=== PATIENT | female | born 1950 | race Two or more races ===

== ENCOUNTER 2020-07-21 19:32 | Emergency (ER) | payer OTHER ==
[2020-07-21 19:43] VITALS: BP 174/62; PULSE 72; TEMP 98.6; BMI 22.2
[2020-07-21] MEDS ORDERED: ACETAMINOPHEN 500 MG TABLET (FP) PO ONE (20:02)
[2020-07-21] MEDS ORDERED: RABIES IMMUNE GLOBULIN 300 UNITS/1 ML VIAL IM ONE (20:07)
[2020-07-21] MEDS ORDERED: RABIES VACCINE (PCEC)/PF 2.5 UNIT/VIAL IM ONE ×2 (20:07→20:26)
[2020-07-21] MEDS ORDERED: ONDANSETRON *ODT* 4 MG TABLET SL ONE (20:13)
[2020-07-21] MEDS ORDERED: ACETAMINOPHEN 500 MG TABLET (FP) ONE (20:25)
[2020-07-21] MEDS ORDERED: RABIES IMMUNE GLOBULIN 300 UNITS/1 ML VIAL ONE (20:26)
== END 2020-07-21 21:07 | disposition home or self-care (01) ==
LOC: JERFT 19:32
PROC: 3E0234Z Introduction of Serum, Toxoid and Vaccine into Muscle, Percutaneous Approach (ICD-10-PCS; principal; 2020-07-21)
DX: S81.851A Open bite, right lower leg, initial encounter (principal); W54.0XXA Bitten by dog, initial encounter
CPT/HCPCS: 90375; 90675; 99284-25

== ENCOUNTER 2020-07-24 14:30 | Emergency (ER) | payer OTHER ==
[2020-07-24 14:44] VITALS: BP 134/66; PULSE 70; BMI 22.2
[2020-07-24] MEDS ORDERED: RABIES VACCINE (PCEC)/PF 2.5 UNIT/VIAL IM ONE ×2 (15:14→15:22)
== END 2020-07-24 15:30 | disposition home or self-care (01) ==
LOC: JERFT 14:30
PROC: 3E0234Z Introduction of Serum, Toxoid and Vaccine into Muscle, Percutaneous Approach (ICD-10-PCS; principal; 2020-07-24)
DX: Z29.14 Encounter for prophylactic rabies immune globulin (principal)
CPT/HCPCS: 90471; 90675; 99284-25

== ENCOUNTER 2020-07-28 13:16 | Emergency (ER) | payer OTHER ==
[2020-07-28] MEDS ORDERED: RABIES VACCINE (PCEC)/PF 2.5 UNIT/VIAL IM ONE ×2 (13:19→13:30)
[2020-07-28 13:25] VITALS: BP 165/82; PULSE 68; TEMP 98.1; BMI 22.2
== END 2020-07-28 13:40 | disposition home or self-care (01) ==
LOC: JER 13:16
PROC: 3E0234Z Introduction of Serum, Toxoid and Vaccine into Muscle, Percutaneous Approach (ICD-10-PCS; principal; 2020-07-28)
DX: Z29.14 Encounter for prophylactic rabies immune globulin (principal)
CPT/HCPCS: 90675; 99284-25

== ENCOUNTER 2020-08-04 14:36 | Emergency (ER) | payer OTHER ==
[2020-08-04 14:55] VITALS: BP 132/74; PULSE 68; TEMP 98.1; BMI 22.2
[2020-08-04] MEDS ORDERED: RABIES VACCINE (PCEC)/PF 2.5 UNIT/VIAL IM ONE ×2 (15:20→15:43)
== END 2020-08-04 16:06 | disposition home or self-care (01) ==
LOC: JERFT 14:36
PROC: 3E0234Z Introduction of Serum, Toxoid and Vaccine into Muscle, Percutaneous Approach (ICD-10-PCS; principal; 2020-08-04)
DX: Z20.3 Contact with and (suspected) exposure to rabies (principal)
CPT/HCPCS: 90675; 99284-25

== ENCOUNTER 2021-07-11 13:29 | Inpatient (IN) | payer OTHER ==
[2021-07-11 14:26] VITALS: BMI 22.2
[2021-07-11] MEDS ORDERED: ASPIRIN 81 MG CHEWABLE TABLETS PO ONE (14:50)
[2021-07-11] MEDS ORDERED: NITROGLYCERIN SUBLINGUAL 1/200 0.3 MG BTL SL ONE (14:50)
[2021-07-11] MEDS ORDERED: ASPIRIN 81 MG CHEWABLE TABLETS ONE (15:04)
[2021-07-11] MEDS ORDERED: NITROGLYCERIN SUBLINGUAL 1/150 0.4 MG TAB ONE (15:05)
[2021-07-11] MEDS ORDERED: ACETAMINOPHEN 1000 MG/100 ML BAG IVPB ONE (15:16)
[2021-07-11 15:20] LABS: BASO % 0.4 % (0-2.0); EOS % 0.2 % (0-4.5); HEMATOCRIT 41.9 % (32.4-45.2); HEMOGLOBIN 13.6 GM/dL (10.7-15.3); LYMPH % 27.3 % (8-40); MCH 26.1 pg (25.7-33.7); MCHC 32.4 g/dl (32.0-36.0); MEAN CELL VOLUME 80.5 fl (80-96); MEAN PLT VOLUME 7.2 fl (7.5-11.1); MONO % 4.8 % (3.8-10.2); NEUT % 67.3 % (42.8-82.8); PLATELET COUNT 328 10^3/uL (134-434); RDW 13.6 % (11.6-15.6); WHITE BLOOD COUNT 6.9 K/mm3 (4.0-10.0)
[2021-07-11] MEDS ORDERED: ACETAMINOPHEN INJECTION 100 ML IVPB ONE (15:20)
[2021-07-11 15:23] LABS: PH,URINE 7.5 (5.0-8.0); URINE APPEARANCE CLEAR; URINE BILIRUBIN NEGATIVE (NEGATIVE); URINE COLOR YELLOW; URINE GLUCOSE (UA) NEGATIVE (NEGATIVE); URINE KETONE NEGATIVE (NEGATIVE); URINE LEUK ESTERASE NEGATIVE (NEGATIVE); URINE NITRITE NEGATIVE (NEGATIVE); URINE PROTEIN NEGATIVE (NEGATIVE); URINE UROBILINOGEN 0.2 mg/dL (0.2-1.0)
[2021-07-11 15:28] LABS: INR 1.03 (0.83-1.09); PROTHROMBIN TIME (PATIENT) 11.9 SEC (9.7-13.0)
[2021-07-11 15:30] LABS: ACTIVATED PTT 32.3 SECONDS (25.2-36.5)
[2021-07-11 15:39] LABS: CHLORIDE 106 mmol/L (98-107); SODIUM 142 mmol/L (136-145)
[2021-07-11 15:41] LABS: ALBUMIN 4.6 g/dl (3.4-5.0); CALCIUM 9.7 mg/dL (8.5-10.1)
[2021-07-11 15:42] LABS: ANION GAP 8 MMOL/L (8-16); BLOOD UREA NITROGEN 13.7 mg/dL (7-18); CO2 27 mmol/L (21-32); GLUCOSE,RANDOM 109 mg/dL (74-106)
[2021-07-11 15:44] LABS: CREATININE 0.6 mg/dL (0.55-1.3)
[2021-07-11 15:45] LABS: SGOT/AST 24 U/L (15-37); SGPT/ALT 29 U/L (13-61)
[2021-07-11 15:46] LABS: BILIRUBIN,TOTAL 0.3 mg/dL (0.2-1); TOT PROT 8.9 g/dl (6.4-8.2)
[2021-07-11 15:47] LABS: ALK PHOS 123 U/L (45-117)
[2021-07-12] MEDS ORDERED: LEVOTHYROXINE NA 50 MCG TABLET (FP) PO SCH (07:00)
[2021-07-12 07:58] LABS: BASO % 0.4 % (0-2.0); EOS % 1.1 % (0-4.5); HEMATOCRIT 38.5 % (32.4-45.2); HEMOGLOBIN 12.4 GM/dL (10.7-15.3); LYMPH % 38.8 % (8-40); MCH 26.1 pg (25.7-33.7); MCHC 32.3 g/dl (32.0-36.0); MEAN CELL VOLUME 80.8 fl (80-96); MEAN PLT VOLUME 7.3 fl (7.5-11.1); MONO % 8.1 % (3.8-10.2); NEUT % 51.6 % (42.8-82.8); PLATELET COUNT 288 10^3/uL (134-434); RBC 4.76 M/mm3 (3.60-5.2); RDW 13.4 % (11.6-15.6); WHITE BLOOD COUNT 5.9 K/mm3 (4.0-10.0)
[2021-07-12 08:16] LABS: CALCIUM 9.2 mg/dL (8.5-10.1)
[2021-07-12 08:17] LABS: ALBUMIN 3.7 g/dl (3.4-5.0); BLOOD UREA NITROGEN 12.3 mg/dL (7-18)
[2021-07-12 08:20] LABS: CREATININE 0.5 mg/dL (0.55-1.3)
[2021-07-12 08:22] LABS: BILIRUBIN,TOTAL 0.4 mg/dL (0.2-1); TOT PROT 7.2 g/dl (6.4-8.2)
[2021-07-12 08:43] VITALS: TEMP 98.4
[2021-07-12] MEDS ORDERED: ENOXAPARIN NA (PORCINE) 40 MG/0.4 ML DISP.SYRIN SQ ONE (09:23)
[2021-07-12] MEDS ORDERED: ENOXAPARIN NA (PORCINE) 40 MG/0.4 ML DISP.SYRIN SQ SCH (10:00)
[2021-07-12 13:58] VITALS: BP 135/74; PULSE 61
== END 2021-07-12 14:00 | disposition home or self-care (01) | DRG 313 ==
LOC: JER 13:29 → JERBED 16:01 → OBSVTOIN 18:36
PROVIDERS: ATTEND Internal Medicine
DX: R07.89 Other chest pain (principal); E03.9 Hypothyroidism, unspecified; D32.9 Benign neoplasm of meninges, unspecified; R55 Syncope and collapse; R11.0 Nausea; K21.9 Gastro-esophageal reflux disease without esophagitis
CPT/HCPCS: 36415; 70450-TC; 71045-TC-FY; 80053; 81003; 82550; 82553; 82962; 84484; 85025; 85610; 85730; 86850; 86900; 86901; 87086; 93005; 93010; 99285-25; C9803; G0378; J0131; U0003; U0005